=== PATIENT | female | born 1965 | race Caucasian/White ===

== ENCOUNTER → 2017-08-29 | Outpatient (CLI) | payer OTHER | END | disposition home or self-care (01) | LOC: NUC 10:51 | DX: M19.072 Primary osteoarthritis, left ankle and foot (principal); M19.071 Primary osteoarthritis, right ankle and foot; Z87.81 Personal history of (healed) traumatic fracture; Z96.89 Presence of other specified functional implants; R93.7 Abnormal findings on diagnostic imaging of other parts of musculoskeletal system; M17.11 Unilateral primary osteoarthritis, right knee; M19.171 Post-traumatic osteoarthritis, right ankle and foot | CPT/HCPCS: 78315; A9503 ==